=== PATIENT | male | born 1975 ===

== ENCOUNTER 2018-09-09 14:27 | Emergency (ER) | payer OTHER ==
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
[2018-09-09 15:22] VITALS: BP 154/91; PULSE 84; RESP 18; TEMP 98.1; O2SAT 98
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
== END 2018-09-09 15:40 | disposition home or self-care (01) ==
LOC: C.ER 14:27
DX: S70.01XA Contusion of right hip, initial encounter (principal); V09.20XA Pedestrian injured in traffic accident involving unspecified motor vehicles, initial encounter; Y92.410 Unspecified street and highway as the place of occurrence of the external cause